=== PATIENT | female | born 1935 | race Caucasian/White ===

== ENCOUNTER 2017-02-13 23:13 | Emergency (ER) | payer OTHER ==
--- NOTE | ~2017-02-13 | EKG ---
PATIENT: TRACY PALACIOS UNIT #: [id number] Ventricular Rate: 77 BPM Atrial Rate: 77 BPM P-R Interval: 174 ms QRS Duration: 120 ms Q-T Interval: 416 ms QTC Calculation(Bezet): 470 ms P [place]: 31 degrees Calculated R [place]: -27 degrees Calculated T [place]: 74 degrees Diagnosis Line: Normal sinus rhythm Diagnosis Line: Left ventricular hypertrophy with QRS widening and Diagnosis Line: repolarization abnormality Diagnosis Line: Abnormal ECG Diagnosis Line: No previous ECGs available Diagnosis Line: Confirmed by BLUE HERNANDEZ MD ([id number]) on Diagnosis Line: 02/15/2017 8:48:34 AM INTERPRETING : [place]
--- NOTE | ~2017-02-13 | CR72 ---
[facility] A Service of [facility] & [facility] RADIOLOGY TEXT RESULTS PATIENT: TRACY PALACIOS LOCATION: [facility] : 34 UNIT #: [id number] AGE: [address]: Jean Pierre Robles MD SEX: F ORDER DR: [id number] [facility] [place] [address] [place], [place] [address] [id number] E MR#: [id number] Acc #: [id number] NAME: TRACY PALACIOS : 1935 SEX: F STUDY DATE/TIME: 02/13/2017 22:31 UNIT: [facility] ROOM: STUDY DESCRIPTION: CR Chest Single View Portable Attending Physician: Jean Pierre Robles M.D. Ordering Physician: Jean Pierre Robles M.D. Primary Care Physician: Olegario Perry M.D. MEDICAL IMAGING REPORT This report is preliminary unless electronic signature is present EXAM AP portable chest DATE 02/13/2017 at 22:31 HISTORY Shortness of breath and left sided chest pain rating to left shoulder today. COMPARISON None. FINDINGS Lungs appear mildly hyperinflated and probably emphysematous. Interstitial prominence is present in a bibasilar distribution which is nonspecific and may be chronic. No comparison studies. No dense consolidations are seen. The aortic knob appears ectatic. Heart size appears within normal limits. No pleural effusion or pneumothorax or acute osseous abnormalities are identified. IMPRESSION 1. Suspected emphysematous changes. Interstitial prominence in the bases favored to represent a chronic finding although there is no comparison study at this institution. 2. Ectasia of the aortic knob. 3. No lung consolidations are identified. Dictated by... Paula Dhaliwal M.D. THIS IS AN ELECTRONICALLY VERIFIED REPORT Paula Dhaliwal M.D. at 02/14/2017 6:02 AM [facility] A Service of [facility] & [facility] RADIOLOGY TEXT RESULTS PATIENT: TRACY PALACIOS LOCATION: [facility] : 33 UNIT #: [id number] AGE: [address]: Jean Pierre Robles MD SEX: F ORDER DR: MIKE/gunnar TD: 02/14/2017 00:52 JOB #: [id number] MEDICAL IMAGING REPORT Page 1 of 1 COPY
[2017-02-13 22:54] LABS: BASOPHIL# 0.1 X10e3 (0-0.3); BASOPHIL% 0.7 % (0-2.5); EOSINOPHIL# 0.1 X10e3 (0-0.7); EOSINOPHIL% 1.4 % (0.0-7.0); HEMATOCRIT 27.5 % (35.0-45.0); HEMOGLOBIN 9.6 gm/dL (12.0-16.0); LYMPHOCYTE# 2.3 X10e3 (1.0-3.5); LYMPHOCYTE% 28.1 % (17.0-45.0); MEAN CELL VOLUME 83.8 FL (83-96); MEAN CORPUSCULAR HEMOGLOBIN 29.3 PG (28-34); MEAN CORPUSCULAR HGB CONC 34.9 g/dL (30-36); MEAN PLATELET VOLUME 8.2 FL (6.5-11.5); MONOCYTE# 0.6 X10e3 (0-1.0); MONOCYTE% 7.4 % (3.0-12.0); NEUTROPHIL% 62.4 % (40-75); PLATELET COUNT 171 X10e3 (140-420); RED BLOOD COUNT 3.29 X10e (3.90-5.30); RED CELL DISTRIBUTION WIDTH 18.9 % (11.0-15.5); WHITE BLOOD COUNT 8.1 X10e3 (4.0-10.5)
[2017-02-13 22:55] LABS: DIFF IND NO
[2017-02-13 23:13] LABS: POC - CKMB <1.0 ng/mL (0.0-7.9); POC - TROPONIN <0.05 ng/mL (<=0.05)
[~2017-02-13 23:13] MED LIST: ASPIRIN EC81 M1 PO; COZAAR100 MG PO; DOCUSATE SODIU100 MG PO; FERRO-TIME325 MG PO; FLONASE ALLERG9.9 ML; KLOR-CON PO; MEGA MULTIVITA1 EACH PO; MIRALAX17 GM PO; NORVASC PO; ROBITUSSIN A-C S5 ML PO; TYLENOL325 M1 PO; VITAMIN C500 MG PO; VITAMIN D350000 UNIT PO
[2017-02-13 23:19] LABS: ALBUMIN SERUM 4.1 g/dL (3.5-5.0); BILIRUBIN, DIRECT 0.2 mg/dL (0.0-0.2); BILIRUBIN,TOTAL 1.2 mg/dL (0.2-2.0); BUN/CREATININE RATIO 37.14; CREATININE SERUM 0.7 mg/dL (0.6-1.4); GLOM FILT RATE Estimated 80.7 mL/min (>60); PROTEIN TOTAL SERUM 6.5 g/dL (6.0-8.3)
[2017-02-14 01:23] LABS: POC - CKMB <1.0 ng/mL (0.0-7.9); POC - TROPONIN <0.05 ng/mL (<=0.05)
== END 2017-02-14 02:12 | disposition home or self-care (01) ==
LOC: CED 23:13
PROVIDERS: Emergency Medicine
DX: R07.9 Chest pain, unspecified (principal); I10 Essential (primary) hypertension
CPT/HCPCS: 36415; 71010; 80048; 80076; 82553; 83880; 84484; 85025; 85379; 93005; 99284